=== PATIENT | female | born 1945 | race Caucasian/White ===

== ENCOUNTER 2020-02-20 12:08 | Outpatient (CLI) | payer OTHER, SELFPAY ==
--- NOTE | 2020-02-20 12:17 | ECHO_ITS ---
Patient Info Name: Mini Briceño Age: 74 years : 1945 Gender: Female Ht: 61 in Wt: 115 lbs BSA: 1.50 m2 HR: 89 bpm BP: 144 / 86 mmHg Technical Quality: Fair Exam Date: 02/20/2020 12:23 PM Exam Location: [facility] Patient Status: Outpatient Admit Date: 02/20/2020 Staff Ordering Physician: Martin Childs DO Stone Carver: Delia Fuchs RDCS Attending Provider: Martin Childs DO Referring Physician: Amadeo SHORE; Exam Type: CA echo doppler color flow Study Info Indications I44.7 - Left bundle-branch block, unspecified R06.00 - Dyspnea, unspecified Complete two-dimensional, color flow and Doppler transthoracic echocardiogram is performed. Summary 1. Left ventricular chamber dimension is normal. 2. Left ventricular systolic function is normal, estimated at 55-60%. 3. Left ventricular septal wall motion is abnormal with septal motion related to bundle branch block. 4. The left ventricular diastolic function is grade I diastolic dysfunction. 5. There is mild tricuspid valve regurgitation. 6. No pulmonary hypertension, estimated pulmonary arterial systolic pressure is 28 mmHg. Left Ventricle Tissue doppler is not performed. Left ventricular chamber dimension is normal. Left ventricular systolic function is normal, estimated at 55-60%. Left ventricular septal wall motion is abnormal with septal motion related to bundle branch block. The left ventricular diastolic function is grade I diastolic dysfunction. Right Ventricle Right ventricular chamber dimension is normal. Right ventricular systolic function is normal. Left Atria Left atrial chamber dimension is normal. Right Atria Right atrial chamber dimension is normal. Aortic Valve The aortic valve is trileaflet. There is no aortic valve stenosis. There is no aortic valve regurgitation. Pulmonic Valve There is no pulmonic regurgitation. Mitral Valve There is no mitral valve stenosis. There is no mitral valve regurgitation. Tricuspid Valve There is mild tricuspid valve regurgitation. No pulmonary hypertension, estimated pulmonary arterial systolic pressure is 28 mmHg. Pericardium/Pleural There is no pericardial effusion. Inferior Vena Cava Normal inferior vena cava with >50% collapse upon inspiration consistent with normal right atrial pressure, 5 mmHg. Aorta The aortic root size at the sinus of Valsalva is normal. Left Ventricular Outflow Tract Name Value Normal LVOT 2D LVOT Diameter 1.9 cm LVOT Doppler LVOT Peak Velocity 94 cm/s LVOT Peak Gradient 4 mmHg LVOT Mean Gradient 2 mmHg LVOT VTI 17 cm LVOT VTI/AV VTI Ratio 1.1 LVOT Stroke Volume 48 ml LVOT CO 3.7 l/min LVOT CI 2.5 l/min/m2 Pulmonic Valve Name Value Normal
== END 2020-02-20 12:09 | disposition home or self-care (01) ==
PROVIDERS: PCP Family Medicine; Visit Provider Internal Medicine Cardiovascular Disease
DX: I44.7 Left bundle-branch block, unspecified (principal); R06.00 Dyspnea, unspecified
CPT/HCPCS: 93306

== ENCOUNTER 2021-01-13 08:37 | Outpatient (CLI) | payer OTHER, SELFPAY ==
--- NOTE | ~2021-01-13 | MM_ITS ---
EXAMINATION: MM screening logan BI w lianna HISTORY: Screening TECHNIQUE: Craniocaudal and mediolateral oblique 3-D tomosynthesis images were obtained and synthetic 2-D images were generated. CAD analysis was submitted and interpreted. COMPARISON: Comparison to multiple prior studies sequentially, with oldest reviewed study dated 08/10. BREAST PARENCHYMAL COMPOSITION: The breasts are heterogeneously dense, which may obscure small masses . FINDINGS: There is no evidence of suspicious mass, calcification, or architectural distortion to sugg est malignancy in either breast. There has been no suspicious interval change. IMPRESSION: 1. No mammographic evidence of malignancy. 2. Recommend routine screening mammography in one year. BI-RADS Category 1: Negative Reviewed, dictated and finalized at location A. FING CLERK
== END 2021-01-13 08:38 | disposition home or self-care (01) ==
LOC: ANHIMG 08:39
PROVIDERS: PCP Physician Assistant; Visit Provider Obstetrics & Gynecology
DX: Z12.31 Encounter for screening mammogram for malignant neoplasm of breast (principal)
CPT/HCPCS: 77063; 77067

== ENCOUNTER → 2021-07-04 01:55 | Outpatient (CLI) | payer OTHER, SELFPAY ==
[2021-07-05 06:40] LABS: SARS-CoV-2 RNA PCR Negative
== END ==
PROVIDERS: PCP Family Medicine; Visit Provider Family Medicine
DX: R53.83 Other fatigue (principal); Z20.822 Contact with and (suspected) exposure to COVID-19
CPT/HCPCS: C9803; U0003; U0005

== ENCOUNTER 2022-06-17 12:25 | Outpatient (CLI) | payer OTHER, SELFPAY ==
--- NOTE | ~2022-06-17 | MM_ITS ---
EXAMINATION: MM screening logan BI w lianna HISTORY: Screening TECHNIQUE: Craniocaudal and mediolateral oblique 3-D tomosynthesis images were obtained and synthetic 2-D images were generated. CAD analysis was submitted and interpreted. COMPARISON: Comparison to multiple prior studies sequentially, with oldest reviewed study dated 08/12. BREAST PARENCHYMAL COMPOSITION: The breasts are heterogenously dense, which may obscure small masses FINDINGS: There is no evidence of suspicious mass, calcification, or architectural distortion to sugg est malignancy in either breast. There has been no suspicious interval change. IMPRESSION: 1. No mammographic evidence of malignancy. 2. Recommend routine screening mammography in one year. BI-RADS Category 1: Negative Reviewed, dictated and finalized at location A.
== END 2022-06-17 12:26 | disposition home or self-care (01) ==
LOC: ANHIMG 12:27
PROVIDERS: PCP Family Medicine; Visit Provider Obstetrics & Gynecology
DX: Z12.31 Encounter for screening mammogram for malignant neoplasm of breast (principal)
CPT/HCPCS: 77063; 77067

== ENCOUNTER → 2022-10-01 13:36 | Outpatient (CLI) | payer OTHER, SELFPAY ==
--- NOTE | ~2022-10-01 | XR_ITS ---
XR hip LT min 3V w AP pelvis DATE: 10/01/2022 13:48 INDICATION: No injury. Left hip pain. TECHNIQUE: AP pelvis. AP and lateral views of left hip COMPARISON: None FINDINGS: There is osteopenia. There is mild dextro scoliosis of the lumbar spine. The pubic symphysis and sacroiliac joints are intact. No pelvic fracture or bone destruction. Hip kacy nt spaces are symmetric and relatively preserved. No fracture or dislocation, avascular necrosis or b one destruction of the left hip. IMPRESSION: Osteopenia Reviewed, dictated and finalized at location B. ICE ORDER EXPEDITER IMPRESSION: Osteopenia
== END ==
PROVIDERS: PCP Family Medicine; Visit Provider Physician Assistant Medical
DX: M85.852 Other specified disorders of bone density and structure, left thigh (principal)
CPT/HCPCS: 73502

== ENCOUNTER 2023-01-23 17:37 | Emergency (ER) | payer OTHER, SELFPAY ==
--- NOTE | 2023-01-23 17:47 | ED.URI ---
HPI - URI/Sore Throat General Chief Complaint: Upper Respiratory Infection Stated Complaint: positive for covid Time Seen by Provider: 01/23/23 17:47 Source: patient and RN notes reviewed History of Present Illness HPI Narrative: Patient is a 77-year-old female who presents to urgent care requesting Paxlovid. Patient was feeling fatigued and feverish yesterday and test herself today for COVID. Patient did have 2-3 positive COVID test. Patient states that her daughter advised her to come to the urgent care and get a prescription for Paxil bed. Patient states that she feels much better after taking Tylenol and denies any chest discomfort, shortness of breath, sore throat or upper respiratory symptoms. Patient states that yesterday she felt good enough to go swimming and felt chilled after. No acute distress noted. Patient aware of the plan of care. Some parts of this dictation were generated by voice recognition software and may contain typographical and/or grammatical inaccuracies. Related Data Home Medications Medication Instructions Recorded Confirmed progesterone micronized 100 mg 100 mg PO QAM 11/14/19 12/14/22 capsule denosumab 60 mg/mL subcutaneous 60 mg subcut [id number] 01/05/20 12/14/22 syringe (Prolia) estradiol 0.01% (0.1 mg/gram) 1 g vaginal 2XW 09/30/21 12/14/22 vaginal cream vitamin B complex (B 1 tablet PO DAILY 09/30/21 12/14/22 Complex-Vitamin B12 tablet) Allergies Allergy/AdvReac Type Severity Reaction Status Date / Time erythromycin base AdvReac Mild upset Verified 01/23/23 17:57 stomach Review of Systems Review of Systems: CONSTITUTIONAL: Reports of fever, chills and fatigue EYES: Denies visual changes, redness, or discharge. ENT: Denies rhinorrhea, congestion, sore throat, or otalgia. CARDIOVASCULAR: Denies chest pain, palpitations, or edema. RESPIRATORY: Denies cough or dyspnea. GASTROINTESTINAL: Denies abdominal pain, nausea, vomiting, or diarrhea. GENITOURINARY: Denies dysuria or hematuria. SKIN: Denies rash or itching. MUSCULOSKELETAL: Denies back pain, joint pain, or myalgia. NEUROLOGIC: Denies headache, numbness, or weakness. All other systems reviewed are negative, except as documented in HPI. [facility] Family History Family History Mother Heart failure Kidney failure Other Carcinoma of colon Social History Social History (Updated 10/01/22 @ 09:10 by Joan Jones [facility]) Smoking status: Never smoker Second hand tobacco smoke exposure: No Alcohol intake: current Drinks per week: 3 Substance use: never Substance use type: does not use Gender identity (if verbalized by the patient): Female Spiritual care concerns: No Comments At the time of my signature, I reviewed and agree with the nursing past medical, surgical, social, and family history. There is no relevant family history pertinent to the patient complaint. Exam Narrative: GENERAL: This is a well-nourished, well-developed patient, in no apparent distress. HEAD: normocephalic, atraumatic. EYES: PERRL. Sclera clear/white. Vision is grossly intact. EARS: External ears normal, auditory canals clear and without drainage, TMs normal without perforation. Hearing grossly intact. NOSE: External nose normal with no obvious nasal discharge, nares without redness, no rhinorrhea. THROAT: Mucous membranes moist, posterior pharynx clear. Mild postnasal drainage NECK: Neck supple, non-tender without lymphadenopathy CARDIOVASCULAR: Regular rate and rhythm RESPIRATORY: Slight crackles bibasilar otherwise clear SKIN: warm, intact with no suspicious lesions or rash, good texture and turgor. NEURO: awake, alert, and oriented to person, place and time. There were no obvious focal neurologic abnormalities. EXTREMITIES: No clubbing, cyanosis, or edema. Course Course Level of Care: Express Care Visit Vital Signs Vital signs: Vital Signs Te
[2023-01-23 17:49] VITALS: BP 143/76; PULSE 88; RESP 14; TEMP 37.6; O2SAT 100
== END 2023-01-23 18:28 | disposition home or self-care (01) ==
PROVIDERS: Emergency Provider Nurse Practitioner Family; PCP Family Medicine
DX: U07.1 COVID-19 (principal); E03.9 Hypothyroidism, unspecified
CPT/HCPCS: 99211; G0463

== ENCOUNTER 2023-03-25 17:59 | Emergency (ER) | payer OTHER, SELFPAY ==
[2023-03-25] VITALS (11 sets, daily range): BP systolic 133–153; BP diastolic 77–82; PULSE 75–95; RESP 12–29; TEMP 36.9; O2SAT 98–100
--- NOTE | ~2023-03-25 | XR_ITS ---
EXAMINATION: XR chest 1V portable DATE: 03/25/2023 19:30 INDICATION: Dizziness. TECHNIQUE: A single frontal view of the chest was obtained. COMPARISON: Chest 2 views 01/07/2019 FINDINGS: Calcified pulmonary nodules and calcified hilar lymph nodes are consistent with old granulo matous disease. No pleural effusion or pneumothorax. The heart size is normal. IMPRESSION: 1. No acute cardiopulmonary disease. Reviewed, dictated and finalized at location E.
--- NOTE | 2023-03-25 18:05 | ECG_ITS ---
Measurements Intervals [place] Rate: 82 P: 25 NE: 142 QRS: 34 QRSD: 125 T: 53 QT: 366 QTc: 429 Interpretive Statements SINUS RHYTHM LEFT BUNDLE BRANCH BLOCK BASELINE ARTIFACT- I, II, III, AVR, AVL ABNORMAL ECG COMPARED TO ECG 01/07/2019 11:32:34 NO SIGNIFICANT CHANGES Electronically Signed On 03-25-2023 21:09:58 CDT by Martin Childs D.O.
[2023-03-25 18:17] LABS: Basophils Absolute Auto 0.1 K/mm3 (0.0-0.1); Basophils Percent Auto 0.8 % (0.2-1.2); Eosinophils Absolute Auto 0.1 K/mm3 (0-0.3); Eosinophils Percent Auto 1.3 % (0-4.4); Hematocrit 43.2 % (37.0-47.0); Hemoglobin 14.4 g/dL (12.0-15.0); Immature Granulocyte Absolute 0.02 K/mm3 (0.00-0.031); Immature Granulocyte Percent A 0.3 % (0-0.5); Lymphocytes Absolute Auto 1.26 K/mm3 (0.9-3.2); Mean Corpuscular HGB Conc 33.3 g/dl (32-36); Mean Corpuscular Hemoglobin 30.4 pg (26-34); Mean Corpuscular Volume 91.3 fl (80-100); Mean Platelet Volume 9.2 fl (7.4-10.4); Monocytes Absolute Auto 0.5 K/mm3 (0.1-0.6); Monocytes Percent Auto 8.7 % (2.6-8.5); Neutrophils Absolute Auto 4.1 K/mm3 (1.3-6.7); Neutrophils Percent Auto 67.9 % (45.5-73.1); Platelet Count Result 198 k/mm3 (150-375); Red Blood Count 4.73 M/mm3 (4.2-5.4); Red Cell Distribution Width 13.2 % (11.5-14.5)
[2023-03-25 18:25] LABS: Alanine Aminotransferase 19 U/L (6-35); Albumin Level 4.2 g/dL (3.5-5.1); Alkaline Phosphatase 45 U/L (38-126); Anion Gap 3 mmol/L (8-16); Aspartate Amino Transferase 30 U/L (14-36); Bilirubin,Total 0.4 mg/dL (0.2-1.3); Blood Urea Nitrogen 17 mg/dL (7-17); Calcium 9.1 mg/dL (8.4-10.2); Carbon Dioxide 30 mmol/L (22-30); Chloride 104 mmol/L (98-107); Estimated CRCL calculation 42 ml/min; Estimated Glomerular Filt Rate > 60; Glucose 85 mg/dL (65-110); Sodium 137 mmol/L (137-145)
--- NOTE | 2023-03-25 19:23 | ED.GENADULT ---
HPI - General Adult General Chief complaint: Dizziness Stated complaint: dizzy Time Seen by Provider: 03/25/23 19:06 History of Present Illness HPI narrative: Is a very pleasant 77-year-old female presenting to ED with chief complaint of dizziness. Patient was driving her car earlier when she had 1 2. 2 seconds where she felt slightly dizzy. It quickly resolved. Then when she got out of the car she had another moment when she felt like she was going to faint. This also resolved after several seconds. She was seen at an urgent care and was instructed to come to the emergency department. Patient says that she has felt well all day she. She was able to do her normal swim in the pool without difficulty. She denies fever chills chest pain difficulty breathing abdominal pain urinary symptoms nausea vomiting or diarrhea. She says she has felt like this in the past when she was dehydrated Related Data Home Medications Medication Instructions Recorded Confirmed progesterone micronized 100 mg 100 mg PO QAM 11/14/19 01/23/23 capsule denosumab 60 mg/mL subcutaneous 60 mg subcut [id number] 01/05/20 01/23/23 syringe (Prolia) estradiol 0.01% (0.1 mg/gram) 1 g vaginal 2XW 09/30/21 01/23/23 vaginal cream vitamin B complex (B 1 tablet PO DAILY 09/30/21 01/23/23 Complex-Vitamin B12 tablet) Allergies Allergy/AdvReac Type Severity Reaction Status Date / Time erythromycin base AdvReac Mild upset Verified 03/25/23 18:00 stomach PMFSH Family History Family History Mother Heart failure Kidney failure Other Carcinoma of colon Social History Social History Smoking status: Never smoker Second hand tobacco smoke exposure: No Alcohol intake: current Drinks per week: 3 Substance use: never Substance use type: does not use Gender identity (if verbalized by the patient): Female Spiritual care concerns: No Exam Narrative: APPEARANCE: No apparent distress. Head: atraumatic. EYES: EOMI, NOSE: Atraumatic NECK: Trachea midline RESPIRATORY: No increased rate of breathing, clear to auscultation CARDIOVASCULAR: RRR, no peripheral edema ABDOMINAL: Non-distended soft nontender no guarding or rebound MUSCULOSKELETAl: No obvious deformities NEURO: Alert.Cranial nerves 2-12 grossly intact. Sensation light touch, motor function cerebellar function intact for 4 extremities. Gait exam was normal. SKIN:: Warm, dry. Normal color PSYCHIATRIC: Normal affect Course Vital Signs Vital signs: Vital Signs Temperature 98.4 F 03/25/23 18:02 Pulse Rate 87 03/25/23 18:02 Respiratory Rate 18 03/25/23 18:02 Blood Pressure 153/79 H 03/25/23 18:02 Pulse Oximetry 100 03/25/23 18:02 Oxygen Delivery Room Air 03/25/23 18:02 Temperature 98.4 F 03/25/23 18:02 Pulse Rate 76 03/25/23 20:16 Respiratory Rate 16 03/25/23 20:16 Blood Pressure 133/79 03/25/23 20:15 Pulse Oximetry 100 03/25/23 20:16 Oxygen Delivery Room Air 03/25/23 18:02 Medical Decision Making MDM Narrative Medical decision making narrative: -Presentation: 77-year-old female presenting with several episodes of dizziness that lasted 1-2 seconds. Patient's history and physical are all within normal limits. screening lab work EKG chest x-ray will be obtained. Patient given IV fluids as she has says that she has felt similar to this in the past when dehydrated. -DDX includes but is not limited to: Dehydration, vertigo, posterior circulation stroke, dysrhythmia -Co-morbidities complicating care: hypoThyroid, advanced age -Social determinants of health: patient is retired preschool principal, lives with Bill -External Chart Review: previous ER visits -Hx from independent Sources: daughter Tiffanie at bedside -Discussion of Management/Consultants: none -Independent interpretation of studies:
[2023-03-25] MEDS: SODIUM CHLORIDE 0.9% IV 1,000 ML 999 ML IV CONT (19:37)
[2023-03-25 20:20] LABS: Influenza A QL RT-PCR Negative (Negative); Influenza B QL RT-PCR Negative (Negative); RSV RNA, RT-PCR Negative (Negative); SARS-CoV-2 RNA PCR Negative (Negative)
== END 2023-03-25 21:32 | disposition home or self-care (01) ==
PROVIDERS: Emergency Medicine; Emergency Provider Emergency Medicine; PCP Family Medicine
DX: R42 Dizziness and giddiness (principal); Z20.822 Contact with and (suspected) exposure to COVID-19
CPT/HCPCS: 36415; 71045; 80053; 85025; 87637; 93005; 96360; 99283; J7030

== ENCOUNTER 2023-05-12 08:45 | Outpatient (RCR) | payer OTHER, SELFPAY ==
--- NOTE | 2023-05-05 15:05 | PTOPEVAL1 ---
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 Patient swims regularly, but reports no hx of swimmer's ears. Has not had her regular eye appointment in at least 15 months. Patient has dizziness when looking way up and when lying down at bedtime. Patient was given meclizine, but reports she does not like it as it makes her too drowsy. Reported Pain Level Pain Score 0: Self Report Assessment PT Clinical Summary Mini is a 77 year old female coming into the clinic with a diagnosis of B.P.P.V. The patient has no noted nystagmus, but dizziness with R sided Leigh-Hallpike. Patient also has trouble with head turns while walking and some balance issues. Physical therapy will work on habituation and balance exercises along with needed Rhina maneuvers for mineral deposit correction as needed . Plan of Care Interventions Electrical Stimulation,Gait Training,Hot Pack/Cold Pack,Manual Therapy,Neuro Re-education,Patient/ Caregiver Education,Therapeutic Activities, Therapeutic Exercise,Ultrasound Other Interventions cupping, taping, IASTM PT Services Indicated Yes Treatment Frequency and 2x/wk for 3 weeks Duration These treatments will address the objective and functional deficits as defined above. The patient will be advanced safely and appropriately in order for the patient to progress towards his/her prior level of function. Additional exercises will be introduced and as well as a comprehensive home exercise program upon discharge, if needed, ?to ensure carryover of functional gains achieved in the clinic. This treatment plan has been reviewed and agreement upon by the patient.
--- NOTE | 2023-05-05 15:07 | OPREHPOC ---
Outpatient Therapy Plan of Care This is a Multidisciplinary Plan of Care that may contain components documented by all disciplines (PT, OT, and ST.) PT Problem 1 PT Problem #1 Knowledge Deficit PT Goal 1 Goal Independent with HEP especially [place] Jeff Target Visit 6 PT Problem 2 PT Problem #2 Impaired Balance PT Goal 1 Goal able to do tandem stance with eyes closed for 30 seconds Target Visit 6 PT Problem 3 PT Problem #3 Impaired Vestibular Syste PT Goal 1 Goal Ambulate with vertical and horizontal head turns without causing dizziness Target Visit 6 PT Goal 2 Goal no dizziness reported with driving in 1 week Target Visit 6
--- NOTE | 2023-05-12 11:04 | PTOPDC ---
Assessment and note entered by Marin Riley, PT Evaluation Information Assessment Status Discharge - Pt Not Present Diagnosis B.P.P.V. 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 Also, reported that has been able drive the last few days, and would like to make this her last day. Reported Pain Level Pain Score 0: Self Report Assessment PT Clinical Summary Patient reports she is not having dizziness and would like to stop therapy. Unable to personally assess for goals met, but reviewed CAR MECHANIC HELPER note. According to CAR MECHANIC HELPER's note has met all goals besides tandem stance balance testing. Plan of Care PT Services Indicated Yes
== END 2023-05-12 14:12 | disposition home or self-care (01) ==
LOC: ANHPT 08:45
PROVIDERS: PCP Family Medicine; Visit Provider Physician Assistant Medical
DX: H81.10 Benign paroxysmal vertigo, unspecified ear (principal)
CPT/HCPCS: 97110; 97161; 97530

== ENCOUNTER 2023-07-05 00:50 | Day surgery (SDC) | payer OTHER, SELFPAY ==
[2023-06-16 14:04] VITALS: BMI 20.8
--- NOTE | 2023-07-05 09:41 | WPDANESEPPF ---
Anes - Initial Pre Proc Eval Procedure: Operation Date: 07/05/23 11:00 Proposed Procedures p Screening Colonoscopy - Valentin Goddard MD Date/Time: 07/05/23 09:41 Surgeon: Valentin Goddard MD Pre Op Diagnosis: neoplasm screening Patient Data Age: 77 Gender: F Height: 1.55 m Weight: 50 kg Allergies Allergy/AdvReac Type Severity Reaction Status Date / Time erythromycin base AdvReac Mild upset Verified 06/17/23 11:05 stomach Home Medications Medication Instructions Recorded Confirmed Type progesterone micronized 100 mg 100 mg PO QAM 11/14/19 06/17/23 History capsule denosumab 60 mg/mL subcutaneous 60 mg subcut [id number] 01/05/20 06/17/23 History syringe (Prolia) estradiol 0.01% (0.1 mg/gram) 1 g vaginal 2XW 09/30/21 06/17/23 History vaginal cream vitamin B complex (B 1 tablet PO DAILY 09/30/21 06/17/23 History Complex-Vitamin B12 tablet) levothyroxine 25 mcg tablet 25 mcg PO DAILY 06/16/23 06/16/23 History (Synthroid) sodium,potassium,mag sulfates 17.5 See Rx Instructions PO .COMPLEX 06/16/23 Rx gram-3.13 gram-1.6 gram oral soln #354 mL (Suprep Bowel Prep Kit) Patient hx anesthesia problems: none Family hx anesthesia problems: none Results Review: All pre-operative results and documents have been reviewed as part of the pre-operative evaluation. [facility] Past Medical History Medical History COVID-19 Personal history of other drug therapy Family History Family History Mother Heart failure Kidney failure Other Carcinoma of colon Social History Social History Smoking status: Never smoker Second hand tobacco smoke exposure: No Alcohol intake: current Drinks per week: 3 Alcohol use details: 1/2 glass of wine daily Substance use: never Substance use type: does not use Lack of Transportation: No Lack of Food: Never True Current Housing: I Have Housing Concerned About Future Housing: No Difficulty Paying Gas/Electric Bills: No Difficulty Paying for Meds: No Currently Unemployed: No Education: Master's Degree or Higher Difficulty w/ Childcare or Family Care: No Living arrangements: with family Occupation/Education: retired Gender identity (if verbalized by the patient): Female Spiritual care concerns: No Anes - Eval Final PreProcedure Day of Procedure 07/05/23 09:41 Patient weight: normal Heart: regular rate and rhythm Lungs: clear to auscultation Airway: Mallampati scale class II Neurological: alert and oriented Last oral intake: >/= 8 hours ASA classification: II Emergent: no Anesthetic plan: proceed Anesthesia type and monitoring: general GIVS and standard monitoring Results Review: All pre-operative results and documents have been reviewed as part of the pre-operative evaluation. Informed Consent: The patient's anesthetic plan and its attendant risks and benefits were discussed with the patient/family/POA. Questions were solicited and answers provided to the satisfaction of the patient/family/POA.
[2023-07-05 09:46] VITALS: BP 117/77; PULSE 108; RESP 18; TEMP 36.8; O2SAT 100
[2023-07-05] MEDS: LACTATED RINGERS 1,000 ML 150 ML IV CONT (09:59)
--- NOTE | 2023-07-05 10:10 | PM.HPGS ---
History of Present Illness History of Present Illness Consent: Risks, benefits, and alternatives have been discussed and questions answered. Patient agrees to proceed with procedure. Chief complaint: neoplasm screening Narrative: Mini Briceño is a 77 year old female Presents for screening colonoscopy. Patient has current weight appetite bowel movements are normal. Patient denies abdominal pain. She has had no bleeding. Patient has a family history of colon cancer although currently she questions this history. Previous colonoscopy were unremarkable. Review of Systems Review of Systems: review of systems noncontributory. PMFSH Past Medical History Medical History COVID-19 Personal history of other drug therapy Family History Family History Mother Heart failure Kidney failure Other Carcinoma of colon Social History Social History Smoking status: Never smoker Second hand tobacco smoke exposure: No Alcohol intake: current Drinks per week: 3 Alcohol use details: 1/2 glass of wine daily Substance use: never Substance use type: does not use Lack of Transportation: No Lack of Food: Never True Current Housing: I Have Housing Concerned About Future Housing: No Difficulty Paying Gas/Electric Bills: No Difficulty Paying for Meds: No Currently Unemployed: No Education: Master's Degree or Higher Difficulty w/ Childcare or Family Care: No Living arrangements: with family Occupation/Education: retired Gender identity (if verbalized by the patient): Female Spiritual care concerns: No Meds Home Medications and Allergies Home Medications Medication Instructions Recorded Confirmed Type progesterone micronized 100 mg 100 mg PO QAM 11/14/19 06/17/23 History capsule denosumab 60 mg/mL subcutaneous 60 mg subcut [id number] 01/05/20 06/17/23 History syringe (Prolia) estradiol 0.01% (0.1 mg/gram) 1 g vaginal 2XW 09/30/21 06/17/23 History vaginal cream vitamin B complex (B 1 tablet PO DAILY 09/30/21 06/17/23 History Complex-Vitamin B12 tablet) levothyroxine 25 mcg tablet 25 mcg PO DAILY 06/16/23 06/16/23 History (Synthroid) sodium,potassium,mag sulfates 17.5 See Rx Instructions PO .COMPLEX 06/16/23 Rx gram-3.13 gram-1.6 gram oral soln #354 mL (Suprep Bowel Prep Kit) Allergies Allergy/AdvReac Type Severity Reaction Status Date / Time erythromycin base AdvReac Mild upset Verified 07/05/23 09:45 stomach Vital Signs Vital Signs - 24 hr 07/05/23 09:46 Temperature 98.3 F Pulse Rate 108 H Respiratory Rate 18 Blood Pressure 117/77 Pulse Oximetry 100 Oxygen Delivery Room Air Exam Narrative: Physical exam reveals patient to be alert. Vital signs stable. HEENT exam is unremarkable. Patient is anicteric. Lungs are clear to auscultation and percussion. Heart is without murmur or extra sounds. Abdomen bowel sounds are present soft nontender with no organomegaly. Digital external rectal exam normal. Assessment and Plan Assessment and plan (1) Encounter for screening colonoscopy: Code(s): Z12.11 - Encounter for screening for malignant neoplasm of colon Status: Acute Assessment and Plan: Patient presents today for screening colonoscopy. Further recommendations will be given after endoscopy.
[2023-07-05 11:19] VITALS: BP 111/75; PULSE 93; RESP 14; O2SAT 98
[2023-07-05 11:29] VITALS: BP 127/97; PULSE 87; RESP 16; O2SAT 100
[2023-07-05 11:39] VITALS: BP 139/67; PULSE 81; RESP 25; O2SAT 98
== END 2023-07-05 11:41 | disposition home or self-care (01) ==
PROVIDERS: PCP Family Medicine; Visit Provider Internal Medicine Gastroenterology
PROC: 0DJD8ZZ Inspection of Lower Intestinal Tract, Via Natural or Artificial Opening Endoscopic (ICD-10-PCS; CPT 45378; principal; 2023-07-05 11:00)
DX: Z12.11 Encounter for screening for malignant neoplasm of colon (principal); K64.8 Other hemorrhoids
CPT/HCPCS: 45378; J2704; J7120

== ENCOUNTER 2023-09-01 09:38 | Outpatient (CLI) | payer OTHER, SELFPAY ==
--- NOTE | ~2023-09-01 | MM_ITS ---
EXAMINATION: MM screening logan BI w lianna HISTORY: Screening TECHNIQUE: Craniocaudal and mediolateral oblique 3-D tomosynthesis images were obtained and synthetic 2-D images were generated. CAD analysis was submitted and interpreted. COMPARISON: Comparison to multiple prior studies sequentially, with oldest reviewed study dated 03/2016. BREAST PARENCHYMAL COMPOSITION: The breasts are heterogeneously dense, which may obscure small masses . FINDINGS: There is no evidence of suspicious mass, calcification, or architectural distortion to sugg est malignancy in either breast. There has been no suspicious interval change. IMPRESSION: 1. No mammographic evidence of malignancy. 2. Recommend routine screening mammography in one year. BI-RADS Category 1: Negative Reviewed, dictated and finalized at location A.
== END 2023-09-01 09:39 | disposition home or self-care (01) ==
LOC: ANHIMG 09:39
PROVIDERS: PCP Family Medicine; Visit Provider Obstetrics & Gynecology
DX: Z12.31 Encounter for screening mammogram for malignant neoplasm of breast (principal)
CPT/HCPCS: 77063; 77067

== ENCOUNTER 2025-04-12 07:35 | Outpatient (CLI) | payer OTHER, SELFPAY ==
--- NOTE | ~2025-04-12 | MM_ITS ---
EXAMINATION: MM screening logan BI w lianna HISTORY: Screening TECHNIQUE: Craniocaudal and mediolateral oblique 3-D tomosynthesis images were obtained and synthetic 2-D images were generated. CAD analysis was submitted and interpreted. COMPARISON: Comparison to multiple prior studies sequentially, with oldest reviewed study dated 12/2017. BREAST PARENCHYMAL COMPOSITION: Dense: The breasts are heterogeneously dense, which may obscure small masses FINDINGS: There is no evidence of suspicious mass, calcification, or architectural distortion to sugg est malignancy in either breast. There has been no suspicious interval change. IMPRESSION: 1. No mammographic evidence of malignancy. 2. Recommend routine screening mammography in one year. BI-RADS Category 1: Negative Reviewed, dictated and finalized at location A.
--- OUTSIDE RECORDS SUMMARY | 2025-04-12 07:38 | XMS_ITS | Encounter Summary ---
Author Organization [facility] Address [address] [place] [address] [place] [address] Care Team Providers Care Laboratory Asst Name Role Phone Unavailable Primary Care Provider Unavailabl e Encounter Details Date Type Department Care Team (Late st Contact Info) Description 08/07/2020 Lab Requisition [facility] DermPath Lab [address] [place] [address] Robert Dove MD [address] [place] [address] Social History Tobacco Use Types Packs/Day Years Used Date Smoking Tobacco: Never Assessed Comments Unknown Sex and Gender Information Value Date Recorded Sex Assigned at Not on file Legal Sex Female 7:10 PM HIDE STRETCHER HAND Gender Identity Not on file Sexual Orientation Not on file COVID-19 Exposure Response Date Recorded In the last month, have you been in contact with someone who was confirmed or suspected to have Coronavirus / COVID-19? No / Unsure 08/05/2020 9:57 AM CDT documented as of this encounter Plan of Treatment Not on file documented as of this encounter Procedures Procedure Name Priority Date/Time Associated Diagnosis Comments DERMATOPATHOLOGY Routine 08/06/2020 12:0 0 AM CDT documented in this encounter Results * DERMATOPATHOLOGY (08/06/2020 12:00 AM CDT) Case Report Dermatopathology Report Case: [id number] Authorizing Provider: Robert Dove MD Collected: 08/06/2020 12:00 AM Ordering Location: [facility] Derm[facility] Lab Received: 08/07/2020 02:21 PM Pathologist: Maris Singleton MD Specimen: Skin, right mid upper arm 0 3:54 PM CDT DERMATOPATHOLOGY LABORATORY Final Diagnosis Specimen A. SKIN, right mid upper arm: BASAL CELL CARCINOMA, NODULAR TYPE (C44.612) 0 3:54 PM CDT DERMATOPATHOLOGY LABORATORY at 1554 CDT Clinical History R/O SCCIS vs BCC vs DF 0 3:54 PM CDT DERMATOPATHOLOGY LABORATORY Gross Description Specimen A: Received is one formalin filled container labeled with the patient's name and designated right mid upper arm. The specimen consists of a shave biopsy measuring 9x7x3 mm. Jar 0. 0 3:54 PM CDT DERMATOPATHOLOGY LABORATORY Microscopic Description Specimen A. SKIN, right mid upper arm: Within the dermis there are aggregates of basaloid cells with a high nuclear to cytoplasmic ratio and peripheral palisading. 0 3:54 PM CDT DERMATOPATHOLOGY LABORATORY Disclaimer An external and internal positive and negative controls are appropriate for the histochemical, immunohistochemical and immunofluorescence stain(s) in this case (if any), except where stated explicitly. The performance characteristics of the stain(s) cited in this report were developed and its performance characteristic determined by the Dermatopathology Laboratory at [facility], directed by Dr. Elvia Alegria. These tests need not be, and therefore are not, approved by the [place] Food and Drug Administration. The tests are used for clinical purposes. Billing Codes Specimen Charges Stain Charges 40116 1 0 3:54 PM CDT DERMATOPATHOLOGY LABORATORY Embedded Images 0 3:54 PM CDT DERMATOPATHOLOGY LABORATORY Pathology/Cytolog y TISSUE SPECIMEN FROM SKIN / Unknown 08/06/2020 08/07/2020 2:21 PM CDT us Robert Dove MD LAB - PATHOLOGY/CYTOLOGY ORD ERABLES Final Result DERMATOPATHOLOGY LABORATORY [facility] - Department of Dermatology [address] [place] [address], [facility] [phone] documented in this encounter Visit Diagnoses Not on filedocumented in this encounter
--- OUTSIDE RECORDS SUMMARY | 2025-04-12 07:38 | XMS_ITS | Clinical Summary ---
Author Organization [facility] Address [address] [place] [address] [place] [address] Care Team Providers Care Supervisor Endless Track Vehicle Name Role Phone Unavailable Primary Care Provider Unavailabl e Source Comments [facility],non-owned Affiliates and Associated Physician Practices is amultiple site organization consisting of ambulatory clinics and hospital sitesin [place], [place], [place] and [place]. This disclosure is being madepursuant to the Care Everywhere program and may not contain all information available regarding this patient. Last updated 18.[facility] License Acquisitions Allergies No known active allergies Immunizations Immunization Administration Dates Next Due INFLUENZA VACCINE, HIGH-DOSE , QUADR. 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 Gender Identity Not on file Sexual Orientation Not on file Plan of Treatment Health Maintenance Due Date Last Done Comments BONE DENSITY TESTING 1943 DTAP/TDAP/TD VACCINES (1 - Tdap) 1962 PNEUMOCOCCAL VACCINE 50+ (1 of 1 - PCV) 1993 ZOSTER VACCINE (1 of 2) 1993 Respiratory Syncytial Virus (RSV) Vaccine Pt: or over 60 yrs (1 - 1-dose 75+ series) 2018 COVID-19 VACCINE (3 - 2023-2 5 season) 2024 01/21/2021, 12/24/2020 DEPRESSION SCREENING 11/15/2024 INFLUENZA VACCINE (Season Ended) 2025 08/05/2020, 08/10/2018 HEPATITIS B VACCINE Aged Out No longe r eligible based on patient's age to complete this topic HIB VACCINE Aged Out No longer eligi ble based on patient's age to complete this topic HPV VACCINE Aged Out No longer eligi ble based on patient's age to complete this topic MENINGOCOCCAL (Group B) VACCINE SHARED DECISION-MAKING Aged Out No longer eligible based on patient's age to complete this topic MENINGOCOCCAL GROUPS A/C/Y/W VACCINE Aged Out No longer eligible b ased on patient's age to complete this topic Insurance [employer] [facility] Address: [id number] [place] [address]
== END 2025-04-12 07:36 | disposition home or self-care (01) ==
LOC: ANHIMG 07:36
PROVIDERS: PCP Family Medicine; Visit Provider Obstetrics & Gynecology
DX: Z12.31 Encounter for screening mammogram for malignant neoplasm of breast (principal)
CPT/HCPCS: 77063; 77067

== ENCOUNTER 2025-07-22 13:52 | Emergency (ER) | payer OTHER, SELFPAY ==
--- NOTE | ~2025-07-22 | XR_ITS ---
EXAMINATION: XR tibia fibula LT 2V, 07/22/2025 14:05 CDT HISTORY: left leg pain anterior no injury COMPARISON: No comparisons available. Findings: No acute fracture or malalignment. No significant degenerative changes. Soft tissues unremarkable. Impression: No acute fracture or malalignment. Reviewed, dictated and finalized at location A. Impression: No acute fracture or malalignment.
[2025-07-22 14:07] VITALS: BP 145/88; PULSE 103; RESP 16; TEMP 35.8; O2SAT 98
--- NOTE | 2025-07-22 14:38 | ED.GENADULT ---
HPI - General Adult General Chief complaint: Extremity Problem,Nontraumatic Stated complaint: L LOWER LEG PAIN Source: patient Mode of arrival: ambulatory History of Present Illness HPI narrative: Patient presents for evaluation of pain in the anterior aspect of the left lower leg. Symptom onset 7 days ago. She had been swimming with flippers several days per week the week prior to symptom onset. She rates her pain as 8/10 in severity. She tried taking Tylenol for her symptoms. She is concerned she has brown splints. She has underlying osteoporosis for which she takes Prolia. Movement makes her symptoms worse. Related Data Home Medications ?Medication ?Instructions ?Recorded ?Confirmed ?Last Taken ?Type progesterone micronized 100 mg 100 mg PO QAM 11/14/19 04/06/25 Unknown History capsule denosumab 60 mg/mL subcutaneous 60 mg subcut [id number] 01/05/20 04/06/25 Unknown History syringe (Prolia) estradiol 0.01% (0.1 mg/gram) 1 g vaginal 2XW 09/30/21 04/06/25 Unknown History vaginal cream vitamin B complex (B 1 tablet PO DAILY 09/30/21 04/06/25 Unknown History Complex-Vitamin B12 tablet) Allergies Allergy/AdvReac Type Severity Reaction Status Date / Time erythromycin base AdvReac Mild upset Verified 07/18/25 16:16 stomach Review of Systems Review of Systems: CONSTITUTIONAL: Denies fever, chills, or sweats. EYES: Denies visual changes, redness, or discharge. ENT: Denies rhinorrhea, congestion, sore throat, or otalgia. CARDIOVASCULAR: Denies chest pain, palpitations, or edema. RESPIRATORY: Denies cough or dyspnea. GASTROINTESTINAL: Denies abdominal pain, nausea, vomiting, or diarrhea. GENITOURINARY: Denies dysuria or hematuria. SKIN: Denies rash or itching. MUSCULOSKELETAL: Reports pain in the anterior aspect of the distal left lower leg NEUROLOGIC: Denies headache, numbness, dizziness, or weakness. PSYCHIATRIC: Denies anxiety or depression. [facility] Past Medical History Medical History Osteoporosis Leg pain, left Arm pain, right COVID-19 Personal history of other drug therapy Surgical History Surgical History No pertinent past surgical history Family History Family History Mother Heart failure Kidney failure Other Carcinoma of colon Social History Social History Smoking status: Never smoker Second hand tobacco smoke exposure: No Alcohol intake: current Drinks per week: 3 Alcohol use details: 1/2 glass of wine daily Substance use: never Substance use type: does not use Do You Feel Safe in your Home?: Yes Lack of Transportation: No Lack of Food: Never True Current Housing: I Have Housing Concerned About Future Housing: No Difficulty Paying Gas/Electric Bills: No Difficulty Paying for Meds: No Currently Unemployed: No Education: Master's Degree or Higher Difficulty w/ Childcare or Family Care: No Living arrangements: with family Occupation/Education: retired Gender identity (if verbalized by the patient): Female Spiritual care concerns: No Exam Narrative: GENERAL: Well-appearing, well-nourished, and in no acute distress. HEAD: Normocephalic, atraumatic. EYES: PERRLA and EOMI. ENT: Nares clear, no rhinorrhea or epistaxis. Mucous membranes moist. Oropharynx without tonsillar hypertrophy exudate or other lesions. Bilateral TMs pearly mcdonald nonbulging NECK: Supple. No adenopathy or masses. No carotid bruits or JVD CHEST: Clear to auscultation. No respiratory distress. No wheezes rales or rhonchi HEART: Regular rate and rhythm. No murmur heard. Normal peripheral pulses. ABDOMEN: Soft, nontender, nondistended, normal active bowel sounds. EXTREMITIES: able to dorsi and plantar flex the left foot. there is tenderness in the anterior aspect of the distal left lower leg without any obvious swelling or deformity SKIN: Warm, dry, no rash. NEURO: No focal deficits. Alert and oriented x3. PSYCH: Normal mood and affect. Course Course Emergency Course: This is an 79-year-old female who presented for evaluation pain in the left lower leg. X-ray negative for fracture. Exam consistent with muscle strain, likely from swimming with flippers. She will use diclofenac and follow up with her primary care provider. For intractable pain or loss of ROM she will go to the ER. Pt in agreement with plan of care. Level of Care: Express Care Visit Vital Signs Vital signs: Vital Signs Temperature 35.8 C L 07/22/25 14:07 Pulse Rate 103 H 07/22/25 14:07 Respiratory Rate 16 07/22/25 14:07 Blood Pressure 145/88 H 07/22/25 14:07 Pulse Oximetry 98 07/22/25 14:07 Temperature 35.8 C L 07/22/25 14:07 Pulse Rate 103 H 07/22/25 14:07 Respiratory Rate 16 07/22/25 14:07 Blood Pressure 145/88 H 07/22/25 14:07 Pulse Oximetry 98 07/22/25 14:07 Medical Decision Making Vital Signs Vital Signs: Vital Signs Temperature 35.8 C L 07/22/25 14:07 Pulse Rate 103 H 07/22/25 14:07 Respiratory Rate 16 07/22/25 14:07 Blood Pressure 145/88 H 07/22/25 14:07 Pulse Oximetry 98 07/22/25 14:07 Temperature 35.8 C L 07/22/25 14:07 Pulse Rate 103 H 07/22/25 14:07 Respiratory Rate 16 07/22/25 14:07 Blood Pressure 145/88 H 07/22/25 14:07 Pulse Oximetry 98 07/22/25 14:07 Imaging Data Radiologist's impression: EXAMINATION: XR tibia fibula LT 2V, 07/22/2025 14:05 CDT HISTORY: left leg pain anterior no injury COMPARISON: No comparisons available. Findings: No acute fracture or malalignment. No significant degenerative changes. Soft tissues unremarkable. Impression: No acute fracture or malalignment. Discharge Plan Discharge Clinical Impression: Muscle strain of left lower extremity Patient Disposition: Home Condition: Stable Instructions: Antibiotic Form, Muscle Strain (ED) Additional Instructions: Topical diclofenac may help your symptoms Patient Language: Macedonian Prescriptions: No Action progesterone micronized 100 mg Capsule 100 mg PO QAM vitamin B complex [B Complex-Vitamin B12] Tablet 1 tablet PO DAILY estradiol 0.01 % (0.1 mg/gram) cream 1 g vaginal 2XW Prolia 60 mg/mL syringe 60 mg SUB-Q [id number] levothyroxine [Synthroid] 25 mcg tablet 25 mcg PO DAILY Qty: 90 1RF Rx Instructions: TAKE 1 TABLET DAILY Follow-up/Referrals: Velvet Barreto MD [Primary Care Provider, [facility]] Time of Disposition: 14:37
== END 2025-07-22 14:48 | disposition home or self-care (01) ==
PROVIDERS: Emergency Provider Nurse Practitioner; PCP Family Medicine
DX: S86.912A Strain of unspecified muscle(s) and tendon(s) at lower leg level, left leg, initial encounter (principal); X58.XXXA Exposure to other specified factors, initial encounter; Y93.11 Activity, swimming; M81.0 Age-related osteoporosis without current pathological fracture; Z86.16 Personal history of COVID-19
CPT/HCPCS: 73590; 99213; G0463